=== PATIENT | female | born 1985 | race Hispanic/Latino ===

== ENCOUNTER 2017-01-25 13:41 | Outpatient (CLI) | payer MEDICAID | END 2017-01-25 14:23 | disposition home or self-care (01) | LOC: TRG 13:41 | PROVIDERS: ATTEND Obstetrics & Gynecology | DX: Z34.93 Encounter for supervision of normal pregnancy, unspecified, third trimester (principal); Z3A.39 39 weeks gestation of pregnancy | CPT/HCPCS: 59025 ==

== ENCOUNTER 2017-01-26 16:14 | Outpatient (CLI) | payer MEDICAID ==
--- NOTE | 2017-01-27 10:37 | Ultrasound Report ---
ULTRASOUND OB LIMITED History: Rupture of membranes Technique: Transabdominal ultrasound with Doppler interrogation. Gestation: Single Position: Cephalic Amniotic Fluid: Normal ZINA = 12.5 cm Heart Rate: 166 BPM
== END 2017-01-26 17:53 | disposition home or self-care (01) ==
LOC: TRG 16:14
PROVIDERS: ATTEND Obstetrics & Gynecology
DX: O42.92 Full-term premature rupture of membranes, unspecified as to length of time between rupture and onset of labor (principal); O47.03 False labor before 37 completed weeks of gestation, third trimester; Z3A.35 35 weeks gestation of pregnancy
CPT/HCPCS: 76815

== ENCOUNTER 2017-01-31 16:38 | Inpatient (IN) | payer MEDICAID ==
[2017-01-31] MEDS ORDERED: XYLOCAINE 2% INFILTRATI ONE (17:35)
[2017-01-31] MEDS ORDERED: PHENERGAN PO PRN (17:35)
[2017-01-31] MEDS ORDERED: STADOL IV PRN (17:35)
[2017-01-31] MEDS ORDERED: MINERAL OIL PO PRN (17:35)
[2017-01-31] MEDS ORDERED: ePHEDrine SULFATE IV PRN ×2 (17:35→20:30)
[2017-01-31] MEDS ORDERED: BRETHINE IVP PRN (17:35)
[2017-01-31] MEDS ORDERED: BRETHINE SUB-Q PRN (17:35)
--- NOTE | 2017-01-31 17:35 | History and Physical Report ---
History of Present Illness Date of examination: 01/31/17 History of present illness: Patient presented to labor and delivery complaints of regular contractions. Initial exam by the RN states that the patient was 5 cm. Patient submitted diagnosis of active labor. Menstrual History LMP: 04/15/2016 LMP reliability: month known EDC Calculations LMP: 01/20/2017 EDC Confirmation: 02/01/2017 Past History : 3 Term Births: 1 Premature Births: 1 Living Children: 2 Para: 2 Mult. Births: 0 Prev : 0 Prev. attempt? 0 Aborta: 0 Elect. Ab: 0 Spont. Ab: 0 Ectopics: 0 # 1 Delivery date: 10/2010 Weeks Gestation: 32 Delivery type: Hours of labor: 13 Delivery location: [facility] Infant Sex: Female weight: 2-10 Comments: IOL for preeclampsia # 2 Delivery date: 10/14/2011 Weeks Gestation: 39 Delivery type: Vaginal Hours of labor: 9 Anesthesia type: epidural Delivery location: [facility] Sex: female weight: 7.69 Comments: none Family History Summary: Other family member - Has Family History of Diabetes - Entered On: 06/26/2016 Other family member - Has Family History of Coronary Heart Disease - Entered On : 06/26/2016 General Comments - FH: No Family History of Breast Cancer No Family History of Colon Cancer No Family History of Ovarvian Cancer Social History: Patient is no etoh, no illicit drug use, no tobacco use Food depot Risk Factors: Smoked Tobacco Use: Current every day smoker Cigars: Yes -- 3 per week Year started: 1 Counseled to quit/cut down: yes Drug use: no Alcohol use: no Past Medical History: Hypothyroidism Past Surgical History: Reviewed history from 02/14/2011 and no changes required: Negative Past Surgical History Past Medical History Abnormal PAP: negative Uterine Anomaly: negative Social Hx: Patient is no etoh, no illicit drug use, no tobacco use Food depot Infection History Hx of STD: none Personal hx. of genital herpes: no Genetic History Congenital Heart Defect: Mom: no Dad: no Isi Disease: Mom: no Dad: no Thalassemia Mom: no Dad: no Neural Tube Defect Mom: no Dad: no Down's Syndrome Mom: no Dad: no Hugo-Sachs Mom: no Dad: no Sickle Cell Disease/Trait Mom: no Dad: no Hemophilia Mom: no Dad: no Muscular Dystrophy Mom: no Dad: no Cystic Fibrosis Mom: no Dad: no [place] Chorea Mom: no Dad: no Mental Retardation Mom: no Dad: no Fragile X Mom: no Dad: no Other Genetic/Chromosomal Disorder Mom: no Dad: no Child w/other defect Mom: no Dad: no Enviromental Exposures Xray Exposure: no Medication, drug, or alcohol use since LMP: no Chemical/Other Exposure: no Exposure to Cat Liter: no Current Allergies (reviewed today): No known allergies Past History Past Medical History: other (see HPI) Past Surgical History: other (see HPI) 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) Family/Genetic History: other (see HPI) Social history: other (see HPI) - Obstetrical History Expected Date of Delivery: 02/01/17 Actual Gestation: 39 Week(s) 6 Day(s) : 3 Para: 2 Hx # Term Pregnancies: 1 Number of Pregnancies: 1 Spontaneous Abortions: 0 Induced : 0 Number of Living Children: 2 Medications and Allergies Allergies Allergy/AdvReac Type Severity Reaction Status Date / Time No Known Allergies Allergy Unverified 02/10/15 13:43 Home Medications Medication Instructions Recorded Confirmed Last Taken Type Levothyroxine [Synthroid] 100 mcg PO QAM 02/10/15 01/31/17 01/30/17 08:00 History Nitrofurantoin [place]/M-Cryst 100 mg PO Q12HR #14 capsule 02/10/15 01/31/17 Unknown Rx [Macrobid CAP] Ondansetron [Zofran Odt] 4 mg PO Q8H #15 tab.rapdis 02/10/15 01/31/17 Unknown Rx One Daily Tablet 1 tab PO QDAY 01/31/17 01/31/17 01/31/17 History - Vital Signs Vital signs: Vital Signs Temp Pulse Resp BP Pulse Ox 97.7 F 105 H 18 141/75 96 01/31/17 16:52 01/31/17 16:52 01/31/17 16:52 01/31/17 16:52 01/31/17 16:52 Temp Pulse Resp BP Pulse Ox 97.7 F 97 H 18 141/75 96 01/31/17 16:52 01/31/17 17:31 01/31/17 16:52 01/31/17 16:52 01/31/17 17:31 - Physical Exam Breasts: Positive: deferred Cardiovascular: Regular rate Lungs: Positive: Normal air movement Abdomen: Positive: normal appearance, soft Genitourinary (Female): Positive: normal external genitalia Vagina: Positive: normal moisture Cervix: Positive: other (exam per RN) Uterus: Positive: other Extremities: Positive: edema - Obstetrical FHR: category 1 Results Result Diagrams: 01/31/17 17:57 All other labs normal. Assessment and Plan - Patient Problems (1) Active labor at term Current Visit: Yes Status: Acute Plan to address problem: Admit Will start labor and delivery protocol (2) Hypothyroid Current Visit: Yes Status: Acute Qualifiers: Hypothyroidism type: unspecified Qualified Code(s): E03.9 - Hypothyroidism , unspecified (3) Group B streptococcal carriage complicating Current Visit: Yes Status: Acute Plan to address problem: Antibiotic prophylaxis
[2017-01-31] MEDS ORDERED: POLYCILLIN/NS 2 GM/100 ML 2 GM/100 ML BAG IV ONE (18:00)
[2017-01-31] MEDS ORDERED: PITOCin/NS 20 UNIT/1000ML DRIP 20 UNITS/1,000 ML BAG IV SCH (18:00)
[2017-01-31 19:01] LABS: Hematocrit 38.7 % (30.3-42.9); Hemoglobin 12.6 gm/dl (10.1-14.3)
[2017-01-31 19:02] LABS: Hematocrit 38.9 % (30.3-42.9); Hemoglobin 12.5 gm/dl (10.1-14.3); Mean Corpuscular HGB Conc 32 % (30-34); Mean Corpuscular Hemoglobin 27 pg (28-32); Mean Corpuscular Volume 84 fl (79-97); Platelet Count 194 K/mm3 (140-440); Red Blood Count 4.65 M/mm3 (3.65-5.03); Red Cell Distribution Width 14.1 % (13.2-15.2); White Blood Count 12.4 K/mm3 (4.5-11.0)
[2017-01-31] MEDS: LACTATED RINGERS 1,000 ML IV SCH ×2 (19:19→19:43)
[2017-01-31] MEDS ORDERED: NARCAN 2 MG/2 ML IV PRN (20:30)
--- NOTE | 2017-01-31 20:30 | Anesthesia Consultation ---
Anesthesia Consult and Med Hx Date of service: 01/31/17 - Airway Anesthetic Teeth Evaluation: Good ROM Head & Neck: Adequate Mental/Hyoid Distance: Adequate Mallampati Class: Class II Intubation Access Assessment: Probably Good - Pulmonary Exam CTA: Yes - Cardiac Exam Cardiac Exam: RRR - Pre-Operative Health Status ASA Pre-Surgery Classification: ASA2 Proposed Anesthetic Plan: Epidural - Pulmonary Hx Asthma: No COPD: No Hx Pneumonia: No - Cardiovascular System Hx Hypertension: No - Central Nervous System Hx Seizures: No Hx Psychiatric Problems: No - Endocrine Hx Renal Disease: No Hx End Stage Renal Disease: No Hx Hypothyroidism: Yes Hx Hyperthyroidism: No - Hematic Hx Anemia: No Hx Sickle Cell Disease: No - Other Systems Hx Alcohol Use: No
[2017-01-31] MEDS ORDERED: fentaNYL-BUPIV 2 MCG/ML-0.125% 200 MCG/100 ML BAG EPIDURAL SCH (21:00)
[2017-01-31] MEDS ORDERED: PITOCin/NS 30 UNIT/500ML 30,000 MILLIUNITS/500 ML BAG IV ONE (21:54)
[2017-01-31] MEDS: POLYCILLIN/NS 1 GM/50 ML 1 GM/50 ML BAG IV SCH (22:24)
[2017-01-31] MEDS: PITOCin/NS 30 UNIT/500ML 30 UNITS/500 ML BAG IV SCH ×2 (23:07→23:36)
--- NOTE | 2017-01-31 23:13 | Event Note ---
Date: 01/31/17 Attempted to rupture membranes was unsuccessful placed IUPC also attempted the scalp electrode was successful. Patient's cervical exam per my exam was only 5 cm centered percent effaced and -2-3 station with start Pitocin and continue to monitor labor
--- NOTE | 2017-02-01 00:06 | Ultrasound Report ---
FINAL REPORT PROCEDURE: US OB LIMITED TECHNIQUE: Real-time limited sonographic examination was performed for evaluation of presentation with image documentation. HISTORY: confirm presentation COMPARISON: No prior studies are available for comparison. FINDINGS: Single live intrauterine is seen a cephalic presentation. heart rate is 118 beats per minute. IMPRESSION: Fetus is in cephalic presentation.
[2017-02-01] MEDS: PITOCin/NS 30 UNIT/500ML 30 UNITS/500 ML BAG IV SCH ×3 (00:24→02:27)
--- NOTE | 2017-02-01 01:49 | Event Note ---
Date: 02/01/17 Constipation secondary to decelerations on tracing. tracing with deceleration some of them with late component. scalp electrode and IUPC were placed. Cervix is now 7 cm 90% effaced was still -2 station. Discuss the tracing with the patient and also discussed indications for operative delivery including failure of this was sent dilatation and also nonreassuring tracing. Patients with Pitocin off at present but we will restart Pitocin and watch tracing closely. All questions answered.
[2017-02-01] MEDS: POLYCILLIN/NS 1 GM/50 ML 1 GM/50 ML BAG IV SCH (02:37)
[2017-02-01] MEDS ORDERED: BICITRA ONE (04:41)
[2017-02-01] MEDS ORDERED: PEPCID IV ONE ×2 (04:42→04:45)
[2017-02-01] MEDS ORDERED: REGLAN ONE (04:42)
[2017-02-01] MEDS ORDERED: REGLAN IV ONE (04:45)
[2017-02-01] MEDS ORDERED: BICITRA PO ONE (04:45)
[2017-02-01] MEDS ORDERED: PITOCin/NS 20 UNIT/1000ML DRIP 20 UNITS/1,000 ML BAG IV SCH ×2 (05:00→08:26)
[2017-02-01] MEDS ORDERED: ANCEF/STERILE WATER 2 GM/20 ML 2 GM/20 ML SYRINGE IV NR (05:00)
--- NOTE | 2017-02-01 05:02 | Event Note ---
Date: 02/01/17 Without change in station and minimal change in dilatation. Will move to performed section.Patient informed the risks of the surgery include bleeding possibly bleeding heavy enough to require blood transfusion, infection possible damage to bowel bladder ureter. All questions answered. Patient agrees to proceed. Patient desires tubal ligation.Patient desires permanent sterilization. She declined temporary contraceptives. She understands the risks of the surgery include bleeding infection possible damage to bowel bladder or ureters. She understands that this surgery would make her permanently sterile. She also understands the approximate 1% failure rate. The patient understands all the above and desires to proceed. Tubal risks
--- NOTE | 2017-02-01 05:04 | Anesthesia Day of Surgery ---
Anesthesia Day of Surgery - Day of Surgery Patient Examined: Yes Patient H&P Reviewed: Yes Patient is NPO: Yes
[2017-02-01] MEDS ORDERED: ANCEF/STERILE WATER 2 GM/20 ML IV ONE (05:05)
[2017-02-01] MEDS ORDERED: WATER FOR IRRIG STERILE IR ONE (05:10)
[2017-02-01] MEDS ORDERED: NACL 0.9% IR ONE (05:10)
[2017-02-01] MEDS ORDERED: MORPHINE ONE ×2 (05:19)
[2017-02-01] MEDS ORDERED: XYLOCAINE MPF 2% ONE ×3 (05:19→05:59)
[2017-02-01] MEDS ORDERED: ZOFRAN ONE (05:48)
[2017-02-01] MEDS ORDERED: VERSED ONE (05:56)
[2017-02-01] MEDS ORDERED: SUBLIMAZE ONE (06:01)
--- NOTE | 2017-02-01 06:29 | Operative Report ---
Operative Report Operative Report: Date of procedure: 02/01/2017 Pre-operative diagnosis: Uterine at 40 weeks with failure of descent and dilatation and desires permanent sterilization Post-operative diagnosis: Same Procedure name(s): Primary section low transverse with bilateral tubal ligation [place] type Surgeon: Santana Siddiqui MD Engineer Chief: Anesthesia: Epidural EBL: 800 mL Complications: Bleeding from the right mesosalpinx repaired Findings: Normal uterus with tubes and ovaries bilaterally had male weight 7 lbs. 13 oz. Apgars 8 at 1 minute 9 at 5 minutes Specimen(s): Portion of the right left fallopian tube Procedure: The patient was brought to the operating room. Patient's epidural was dose. She was then placed in left lateral tilt. Prepped and draped in the usual sterile manner. After testing for adequate anesthesia level, a Pfannenstiel incision was made. This incision was taken down to the fascia. The fascia was then nicked in the midline. This incision was extended out laterally with Lynch scissors. The fascia was then sharply and bluntly from the underlying rectus muscles. The rectus muscles were bluntly and sharply . The peritoneum was then entered with the pickling tank operator's fingers. This incision was spread vertically with care not to damage the bladder below. The bladder flap was then formed sharply and bluntly with Metzenbaum scissors. The Cristo self-retaining tractor was then placed without any difficulty. A transverse incision was made in lower uterine segment. This incision was extended laterally with the operators fingers. The amniotic sac was then entered bluntly with the pickling tank operator's fingers. The was delivered from the vertex position. Bulb suction on the mother's abdomen. Cord was double clamped and cut. The infant was then passed to the nursery personnel who were in attendance. The above scores were given by the nursery personnel. The placenta was then bluntly removed. The uterus was then externalized and wiped clean the remaining products. The uterine incision was closed in layers. The first incision was closed in a locking manner using 0 Vicryl. This was followed by imbricating stitch also with 0 Vicryl. This closure was hemostatic after additional [id number] suture. Attention was then switched to the patient's fallopian tubes. Each fallopian tube was identified by its fimbriated end. A portion of each tube was grabbed with the Alvaro clamp approximately 2-3 cm from the cornua. Each loop was double ligated with 0 plain suture. The loop were cut with Metzenbaum scissors. Each stump was found to be hemostatic and cauterized with the Bovie. Attention was then switched back to the uterine closure. This closure was hemostatic. At this time noted that had a mesial salpinx the tear right adnexa is repaired with 3-0 Vicryl with [id number] at the bleeding spot and a running to close the mesosalpinx between the 2 portions of fallopian tube. The bladder flap was copiously irrigated and found to be hemostatic. The pelvis was copiously irrigated and found to be hemostatic. The uterus was then placed back to the patient's abdomen. Surgicel was placed along the uterine closure. The retractors were removed. The rectus muscles were inspected and found to be hemostatic. The fascia was then closed in a running manner using 0 Vicryl. This incision was hemostatic irrigation Bovie. The skin was reapproximated with 4-0 Vicryl subcuticularly. The patient tolerated procedure well. Her urine was clear. The infant was admitted to the well baby nursery. The patient was accompanied to recovery room in good condition. Instrument count correct 3.
[2017-02-01] MEDS ORDERED: DEMEROL ONE (06:34)
--- NOTE | 2017-02-01 06:44 | Post Anesthesia Evaluation ---
- Post Anesthesia Evaluation Patient Participated: Yes Airway Patent: Yes Stable Respiratory Function: Yes Nausea/Vomiting: No Temp > 96.8F: Yes Pain Manageable: Yes Adequeate Hydration: Yes Anesthesia Complications: No Block Receding Appropriately: Yes Patient on Ventilator: No
[2017-02-01] MEDS ORDERED: DILAUDID IV PRN (06:45)
[2017-02-01] MEDS ORDERED: NARCAN 0.4 MG/1 ML IV PRN ×2 (06:45→08:26)
[2017-02-01] MEDS ORDERED: TORADOL IV PRN (06:46)
[2017-02-01] MEDS ORDERED: SODIUM CHLORIDE FLUSH SYRINGE 10 ML IV NR ×2 (07:00→08:26)
[2017-02-01] MEDS ORDERED: ANCEF/NS 1 GM/50 ML 1 GM/50 ML BAG IV SCH (08:26)
[2017-02-01] MEDS ORDERED: ANUCORT-HC PR PRN (08:26)
[2017-02-01] MEDS ORDERED: TUCKS PAD TP PRN (08:26)
[2017-02-01] MEDS: TORADOL IV SCH ×3 (09:39→21:52)
[2017-02-01] MEDS ORDERED: PRENATAL VITAMIN PO SCH (10:00)
[2017-02-01] MEDS: ceFAZolin 1 GM in NACL 0.9% 20 ML IV SCH ×2 (12:28→20:02)
[2017-02-01] MEDS: D5LR 1,000 ML IV SCH ×2 (12:58→20:02)
[2017-02-01] MEDS: FEOSOL PO SCH (16:46)
[2017-02-01 19:29] LABS: Hematocrit 32.3 % (30.3-42.9); Hemoglobin 10.7 gm/dl (10.1-14.3)
[2017-02-01] MEDS ORDERED: MILK OF MAGNESIA PO PRN (22:00)
[2017-02-02] MEDS: TORADOL IV SCH (04:09)
[2017-02-02] MEDS: SYNTHROID PO SCH (05:10)
[2017-02-02] MEDS: PERCOCET 5/325 PO PRN ×3 (08:12→20:34)
--- NOTE | 2017-02-02 09:15 | Progress Note ---
Assessment and Plan - Patient Problems (1) Active labor at term Current Visit: Yes Status: Resolved (2) Hypothyroid Current Visit: Yes Status: Chronic Qualifiers: Hypothyroidism type: unspecified Qualified Code(s): E03.9 - Hypothyroidism , unspecified (3) Group B streptococcal carriage complicating Current Visit: Yes Status: Chronic (4) Anemia due to acute blood loss Current Visit: Yes Status: Acute Plan to address problem: Patient is asymptomatic (5) Body mass index 37.0-37.9, adult Current Visit: Yes Status: Chronic (6) delivery delivered Current Visit: Yes Status: Acute Plan to address problem: Postoperative day #1. Discuss operative findings with patient and questions answered. Patient without fever. We'll ambulate in halls. We will continue routine postoperative care. Patient's postoperative hematocrit 32%. Patient's bottlefeeding and had tubal ligation for control. Anticipate discharge on tomorrow Subjective Date of service: 02/02/17 Patient Reports: Positive: feels better, pain is less, tolerating a regular diet , voiding w/o difficulty, flatus, no bowel movement, afebrile. Negative: vomiting (patient without any orthostatic symptoms) Objective Vital Signs - 12hr 02/02/17 02/02/17 00:16 04:24 Temperature 98.2 F 98.5 F Pulse Rate 90 99 H Respiratory 18 18 Rate Blood Pressure 123/69 126/72 [Left] - General physical appearance well developed, no distress, other (patient is up walking in the room) - Respiratory normal respiratory effort - Abdomen soft, tender (appropriately), wound (healing well with no drainage or erythema) - Integumentary no rash, no growths, no abnormal pigmentation - Musculoskeletal normal gait, normal posture - Psychiatric oriented to time, oriented to person, oriented to place, speech is normal, memory intact - Labs 02/01/17 18:48
[2017-02-02] MEDS: MOTRIN PO PRN (13:51)
[2017-02-02] MEDS: FEOSOL PO SCH (13:51)
[2017-02-03] MEDS: PERCOCET 5/325 PO PRN ×2 (04:29→14:51)
[2017-02-03] MEDS: SYNTHROID PO SCH (05:29)
[2017-02-03] MEDS: MOTRIN PO PRN ×2 (05:29→14:52)
--- NOTE | 2017-02-03 12:10 | Discharge Summary ---
Providers - Providers Date of Admission: 01/31/17 16:39 Date of discharge: 02/03/17 Attending physician: HAO SINGH 02/01/17 08:26 Consult to Track Rider [CONS] Routine Reason For Exam: Primary care physician: HAO SINGH Hospitalization Reason for admission: active labor Delivery: Procedure: section, bilateral tubal ligation, repeat low transverse Episiotomy: none Laceration: none Incision: normal, dry, intact Other procedures: none complications: none Discharge diagnosis: IUP at term delivered [place] baby: male Hospital course: nl post c/s course, Hct 32 Condition at discharge: Good Disposition: DC-01 TO HOME OR SELFCARE - Discharge Diagnoses (1) delivery delivered Status: Acute (2) Body mass index 37.0-37.9, adult Status: Chronic (3) Active labor at term Status: Resolved Plan - Discharge Medications Prescriptions: Ferrous Sulfate [Feosol 325 MG tab] 325 mg PO BID #60 tablet Ibuprofen [Motrin 800 MG tab] 800 mg PO Q6H PRN #30 tablet PRN Reason: Pain oxyCODONE /ACETAMINOPHEN [Percocet 5/325 mg] 1 - 2 tab PO Q4H PRN #30 tablet PRN Reason: Pain, Moderate - Provider Discharge Summary Activity: no sex for 6 weeks, no heavy lifting 4 weeks, no strenuous exercise Diet: routine Instructions: routine Additional instructions: [] Smoking cessation referral if applicable(refer to patient education folder for contact #) [] Refer to [facility]'s [facility] Booklet Call your doctor immediately for: * Fever > 100.5 * Heavy vaginal bleeding ( >1 pad per hour) * Severe persistent headache * Shortness of breath * Reddened, hot, painful area to leg or breast * Drainage or odor from incision. * Keep incision clean and dry at all times and follow doctor's instructions regarding bathing/showering - Follow up plan Follow up: HAO SINGH MD [Primary Care Provider] - 7 Days
[2017-02-03 12:18] VITALS: BP 116/77
[2017-02-03] MEDS: FEOSOL PO SCH (14:52)
== END 2017-02-03 15:20 | disposition home or self-care (01) | DRG 765 ==
LOC: TRG 16:38 → LD 16:39 → OB 02-01 08:00
PROVIDERS: ADMIT Obstetrics & Gynecology; ATTEND Obstetrics & Gynecology
PROC: 10D00Z1 Extraction of Products of Conception, Low, Open Approach (ICD-10-PCS; principal; 2017-02-01)
PROC: 0UB70ZZ Excision of Bilateral Fallopian Tubes, Open Approach (ICD-10-PCS; 2017-02-01)
DX: O99.824 Streptococcus B carrier state complicating childbirth (principal); D62 Acute posthemorrhagic anemia; O76 Abnormality in fetal heart rate and rhythm complicating labor and delivery; O75.89 Other specified complications of labor and delivery; O99.284 Endocrine, nutritional and metabolic diseases complicating childbirth; E03.9 Hypothyroidism, unspecified; Z30.2 Encounter for sterilization; O90.81 Anemia of the puerperium; Z37.0 Single live birth; Z3A.39 39 weeks gestation of pregnancy; O99.334 Smoking (tobacco) complicating childbirth; F17.210 Nicotine dependence, cigarettes, uncomplicated; O62.1 Secondary uterine inertia
CPT/HCPCS: 36415; 76815; 85014; 85018; 85027; 86850; 86900; 86901; 88302; J0290; J0595; J0690; J1885; J2175; J2250; J2270; J2405; J2590; J2765; J3010; J7120; J7121